=== PATIENT | female | born 1990 | race Caucasian/White ===

== ENCOUNTER 2017-05-04 20:15 | Emergency (ER) | payer OTHER ==
[2017-05-04] MEDS ORDERED: HYDROmorphone 2 MG/ML SDV IM ONE (20:26)
[2017-05-04] MEDS ORDERED: Metoclopramide 10 MG Tab PO PRN (20:29)
[2017-05-04] MEDS ORDERED: Metoclopramide 10 MG Tab PO ONE (20:31)
[2017-05-04] MEDS ORDERED: Acetaminophen/HYDROcodone 325-5 MG Tab PO ONE (21:22)
--- NOTE | 2017-05-07 10:39 | CR ---
INDICATION: Ankle twisted. LEFT TIBIA AND FIBULA: Frontal and lateral views of the left tibia and fibula revealed soft tissue swelling overlying the lateral malleolus. A fracture, dislocation, or other significant bone or joint abnormality was not identified. MTDD
--- NOTE | 2017-05-07 10:41 | CR ---
INDICATION: Pain and swelling laterally. Twisted and heard malleolus pop while running on gymnastics mat. LEFT ANKLE: Three views of the left ankle revealed soft tissue swelling overlying the lateral malleolus. However, the ankle mortise was intact without evidence of a fracture, dislocation, or other significant bone or joint abnormality. JJD
--- NOTE | 2017-05-08 13:47 | ER ---
DATE SEEN: 05/04/2017 TIME SEEN: The patient was seen at 2020 hours. CHIEF COMPLAINT: The patient has left ankle injury. 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 They had a match in [place] this evening, and she has an ankle sprain. She ran across the mat and one of the mats was folded and partially collapsed, so she twisted her ankle on this. She has had previous ankle injuries from gymnastic before. She has marked pain at distal fibula and tibiocalcaneal ligament and moderate swelling. PAST MEDICAL HISTORY: Negative. ALLERGIES: None. MEDICATIONS: None. REVIEW OF SYSTEMS: Negative. PHYSICAL EXAMINATION: HEENT: Without abnormality. VITAL SIGNS: Blood pressure 136/75, heart rate 92, respirations 18, and oxygen saturation 100%. LUNGS: Clear without rales, rhonchi, or wheezes. HEART: S1, S2. No murmur. ABDOMEN: Soft. No guarding. No abdominal discomfort. MUSCULOSKELETAL: Left lower extremity, moderate swelling of ankle, medial and lateral malleolus. Marked tenderness of distal third of the fibula. No crepitus noted. No step- offs noted. Drawer sign is negative. IMAGING: X-rays negative. No evidence for fracture. ASSESSMENT AND PLAN: Severe ankle sprain. No evidence for high ankle sprain. Stirrup ankle brace with a compressive bandage placed. The patient was given 8 tablets of Vicodin for breakthrough pain, to use 1000 mg of Tylenol and 600 mg of ibuprofen every 6 hours. Follow up with her doctor next week. Elevate above her heart. Also, the only thing she should do this weekend is to go to the bathroom and also go to meals. Otherwise, elevate her leg above her heart. She can shower and ice. /[id number] SANDI/KATE
== END 2017-05-04 20:40 | disposition home or self-care (01) ==
LOC: FB.ED 20:15
DX: S93.402A Sprain of unspecified ligament of left ankle, initial encounter (principal); X50.1XXA Overexertion from prolonged static or awkward postures, initial encounter
CPT/HCPCS: 73590; 73610; 96372; 99283; A9270; J1170